=== PATIENT | male | born 1950 | race Caucasian/White ===

== ENCOUNTER 2018-12-10 09:26 | Emergency (ER) | payer SELFPAY ==
[~2018-12-10 09:26] MED LIST: 5% Dextrose in Water 100 ML Bag ONE; Amiodarone 150 MG/3 ML SDV ONE; Amiodarone/Dextrose,Iso-Osmotic 150 MG/100 ML Premix Bag IV ONE; EPINEPHrine 1:10,000 1 MG/10 ML Syringe ONE; Sodium Bicarbonate 8.4% 50 MEQ/50 ML Syringe ONE
[2018-12-10] MEDS ORDERED: Sodium Chloride 0.9% 1,000 ML IV ONE (09:27)
--- NOTE | 2018-12-10 10:09 | EDM.PDOC ---
ED HPI GENERAL MEDICAL PROBLEM - General Chief Complaint: CPR in Progress Stated Complaint: [facility] Time Seen by Provider: 12/10/18 09:26 - History of Present Illness INITIAL COMMENTS - FREE TEXT/NARRATIVE: Patient was observed becoming unresponsive around 08 55 this morning apparently bystander CPR was not started. EMS arrived approximately 5 minutes after he went down perhaps a little longer. Apparently EMS found him he was in PEA and then asystole back to PEA. He had received a Augustin airway a couple rounds of epinephrine and an amp of bicarbonate as well as good-quality chest compressions I talked to Kandi the patient's niece who couldn't not provide very much information other than the patient have stroke 78 years ago and is on Coumadin. Apparently the patient is passing through this area on his way home with a friend of his after going on a car trip. - Related Data Allergies Allergy/AdvReac Type Severity Reaction Status Date / Time Unable to Assess Allergy Unverified 12/10/18 10:30 ED ROS GENERAL - Review of Systems Review Of Systems: Unable To Obtain ED EXAM, CPR - Physical Exam Exam: See Below Limited By: Other (Active code situation) General Appearance: Other ( cyanotic) Eye Exam: Bilateral Eye: Other (Pupils fixed and dilated) Throat/Mouth: Other (Augustin airway in place) Head: Atraumatic, Normocephalic Respiratory Chest: Other (Bilateral breath sounds) Cardiovascular: Other (Pulseless electrical activity the monitor) Extremities: Pedal Edema (Mild) Course - Vital Signs Last Recorded V/S: Last Vital Signs Temp Pulse 0 L 12/10/18 09:30 Resp 0 L 12/10/18 09:30 BP Pulse Ox 21 L 12/10/18 09:30 - Re-Assessments/Exams Free Text/Narrative Re-Assessment/Exam: 12/10/18 09:50 EMS presented with this gentleman who was found down. He was observed down at 08 55. EMS arrived started CPR got a Augustin airway in place given couple rounds of epi 1 round of bicarbonate and started some fluids when he was found to be in PEA before been going to PEA he had a previous episode of asystole. Upon arrival here he still appeared to be in PEA he was given more epi and bicarbonate and fluids. On a subsequent pulse check is found to be in V. tach he received 150 J synchronized and went into a narrow complex sinus appearing rhythm rate in the 80s. However he was still in PEA he was given amiodarone continued at the another round of bicarbonate while getting continuous CPR. Pupils appeared fixed and dilated. He remained in PEA despite our efforts at 45 minutes of resuscitation time check cardiac activity with ultrasound and there was none. Resuscitative efforts stopped at recheck the ultrasound the subxiphoid this showed an occasional very subtle quiver that did not correlate with the the rhythm strip. Departure - Departure Time of Disposition: :47 Disposition: 20 Preliminary Cause of *Q: Cardiac Arrest Clinical Impression: Cardiac arrest - Discharge Information Referrals: PCP,Unknown [Primary Care Provider] - Forms: ED Department Discharge
== END 2018-12-10 16:35 | disposition expired ==
LOC: JD.ED 09:26 → EDBD 09:26 → JD.ED 16:35
DX: I46.9 Cardiac arrest, cause unspecified (principal); Z79.01 Long term (current) use of anticoagulants; Z86.73 Personal history of transient ischemic attack (TIA), and cerebral infarction without residual deficits
CPT/HCPCS: 92950; 92960; 96374; 96375; 99285; J0171; J0282; J7040; J7060; 99283